=== PATIENT | male | born 1965 | race Caucasian/White ===

== ENCOUNTER 2017-11-24 13:06 | Emergency (ER) | payer OTHER ==
[2017-11-24 13:19] VITALS: BP 126/79
[2017-11-24] MEDS ORDERED: DEXTROSE 5 % IN WATER 100 ML IV.SOLN IV ONE (13:39)
[2017-11-24] MEDS: BUPIVACAINE HCL/PF 5 MG/ML 10ML VIAL IJ ONE (13:40)
[2017-11-24] MEDS: ceFAZolin SODIUM 1 GM VIAL IV ONE (13:40)
[2017-11-24] MEDS: DIPH,PERTUSS(ACELL),TET VAC/PF 0.5 ML DISP.SYRIN IM ONE (14:05)
--- NOTE | 2017-11-24 14:26 | ED Physician Documentation ---
General Adult - HISTORIAN Historian: patient - HPI Stated Complaint: L Finger Lac Chief Complaint: Laceration/Recheck/Suture Onset: minutes Further Comments: yes (51 year old male patient presents with injury to left 3rd and 4th finger tips; ran fingers into table saw while fixing his wood floors. Last tetanus >5 years.) - ROS CONST: no problems EYES/ENT: none CVS/RESP: none GI/: none MS/SKIN/LYMPH: none NEURO/PSYCH: denies: headache, fainting, dizziness, tingling, numbness, difficulty walking, difficulty with speech, anxiety, depression, other - PAST HX Past History: hypertension, other (HLD) Allergies/Adverse Reactions: Allergies Allergy/AdvReac Type Severity Reaction Status Date / Time No Known Allergies Allergy Verified 11/24/17 13:13 Home Medications: Ambulatory Orders Medication Instructions Recorded Atorvastatin Calcium 1 tab PO DAILY 11/24/17 Cephalexin [Keflex] 500 mg PO QID #40 capsule 11/24/17 Lisinopril [Prinivil] 1 tab PO DAILY 11/24/17 - SOCIAL HX Smoking History: cigarettes - FAMILY HX Family History: No - VITAL SIGNS Vital Signs: Vital Signs Temp Pulse Resp BP Pulse Ox 81 16 126/79 97 11/24/17 13:06 11/24/17 13:06 11/24/17 13:06 11/24/17 13:06 - REVIEWED ASSESSMENTS Nursing Assessment Reviewed: Yes Vitals Reviewed: Yes Procedures Wound Location: other (left hand - 3rd digit) Wound Length: 2 cm Wound's Depth, Shape: irregular Wound Explored: no foreign body removed Irrigated w/ Saline (ccs): 1,000 Betadine Prep?: No (chlorhexidine) Anesthesia: Other (bupivacaine) Volume of Anesthetic: 10 Wound Repaired With: sutures Suture Size/Type: 5:0 Number of Sutures: 3 Progress: 1000cc wash out to left 3rd digit laceration Left 3rd digit closed with 5.0 suture; edges irregular with avulsion; 4th digit - 5.0 x 1 suture. edges will not well approximate due to avulsion Nonadherant dressing placed; aluminum splint to left 3rd digit. Progress - Progress Progress: Reviewed xray results with patient and family; recommended consult with orthopedics for opened tuft fracture. 1439 [address] [facility] ortho - recommended consult with hand [address] Jovel; follow up tomorrow morning with Dr Ingram at 0900 ED Results Lab/Radiology - Radiology Radiology Impressions: Examination: Plain film left hand History: PT STATES ACCIDENT WITH TABLE SAW TODAY. PT STATES PAIN IN DISTAL 3RD AND 4TH DIGITS. (Hx) Comparison exams: None available Findings: 3 views of the left hand demonstrates tuft injury involving the 3rd digit. Remaining cortical margins are without gross abnormality. No soft tissue radiopaque foreign body. Impression: Tuft injury/fracture 3rd digit. Electronically signed on Nov 24, 2017 1:37:03 PM CDT by: Brandon King - Orders Orders: ED Orders Category Date Time Status Place IV Lock 1T Care 11/24/17 13:30 Active HAND 3 VIEWS OR MORE [RAD] Stat Exams 11/24/17 Taken Bupivacaine HCl/Pf [Marcaine 0.5%] Med 11/24/17 13:30 Discontinued 25 mg IJ NOW ONE Dextrose 5 % in Water [D5w] Med 11/24/17 13:39 Once 100 ml IV NOW ONE Diph,Pertuss(Acell),Tet Vac/Pf [Adacel] Med 11/24/17 13:08 Discontinued 0.5 ml IM .ONCE ONE ceFAZolin SODIUM [Ancef] Med 11/24/17 13:30 Discontinued 1 gm IV NOW ONE General Adult Physical Exam - PHYSICAL EXAM GENERAL APPEARANCE: mild distress EENT: eye inspection normal, JUAN RESPIRATORY: no resp distress CVS: reg rate & rhythm, heart sounds normal, equal pulses, no murmur, no gallop, PMI nml, no JVD, no friction rub, 24 ABDOMEN: soft SKIN: warm/dry, normal color, other (left 4th digit with avulsion and laceration to distal end - 1 cm; left 3rd digit with avulsion and laceration to distal end 2 cm; motor and sensation intake; DIP joint with flexion and extension) EXTREMITIES: non-tender, normal range of motion, no evidence of injury, no edema, J, CMA NEURO: oriented X3, CN's nml as tested, motor nml, sensation nml, mood/affect nml Discharge Clincal Impression: Open fracture of tuft of distal phalanx of finger Avulsion, finger tip Qualifiers: Encounter type: initial encounter Qualified Code(s): S61.209A - Unspecified open wound of unspecified finger without damage to nail, initial encounter Prescriptions: Cephalexin [Keflex] 500 mg PO QID #40 capsule Referrals: Candelaria Diaz MD [Primary Care Provider] - 2 Days Additional Instructions: Follow up with orthopedics - at [facility] Check in at the main desk Dr Ingram 9:00am take your report and xray with you Leave your splint and dressing in place until you see Dr Ingram Tylenol or ibuprofen as needed for discomfort Rest Elevation of left hand -above the level of your heart Return to ER if you have significant pain, redness, bleeding or drainage from wound. Condition: Stable Disposition: 01 HOME, SELF-CARE Decision to Admit: NO Decision Time: 14:53
--- NOTE | 2017-11-24 18:33 | Diagnostic Imaging Report ---
OCTAVIO CARRERO (SHEET ROLLER OPERATOR) - ER [facility] [id number] [facility] [address] [address] Report Submission Date: Nov 24, 2017 1:37:03 PM CDT Patient Study Name: TEJA CASTILLO Date: Nov 24, 2017 1:13:06 PM CDT Modality Type: DX Gender: M Description: UPPER EXTREMITY : 65 Institution: [facility] Physician: OCTAVIO CARRERO (SHEET ROLLER OPERATOR) - ER Examination: Plain film left hand History: PT STATES ACCIDENT WITH TABLE SAW TODAY. PT STATES PAIN IN DISTAL 3RD AND 4TH DIGITS. (Hx) Comparison exams: None available Findings: 3 views of the left hand demonstrates tuft injury involving the 3rd digit. Remaining cortical margins are without gross abnormality. No soft tissue radiopaque foreign body. Impression: Tuft injury/fracture 3rd digit. Electronically signed on Nov 24, 2017 1:37:03 PM CDT by: Brandon ROBLES
== END 2017-11-24 15:10 | disposition home or self-care (01) ==
LOC: ED 13:06
DX: S62.635A Displaced fracture of distal phalanx of left ring finger, initial encounter for closed fracture (principal); S61.307A Unspecified open wound of left little finger with damage to nail, initial encounter; S61.305A Unspecified open wound of left ring finger with damage to nail, initial encounter; W26.8XXA Contact with other sharp object(s), not elsewhere classified, initial encounter; Y92.9 Unspecified place or not applicable; Y93.H3 Activity, building and construction; Y99.9 Unspecified external cause status
CPT/HCPCS: 73130; 90715; J0690; J3490; 12002; 90471; 96365; 96372; J7030; S1016